=== PATIENT | male | born 2000 | race Caucasian/White ===

== ENCOUNTER 2020-03-19 12:16 | Emergency (ER) | payer BC ==
[~2020-03-19] VITALS: Ht 193 cm; Wt 80.3 kg
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
[2020-03-19] MEDS ORDERED: BACITRACIN ZINC 0.9GM TP ONE (13:21)
[2020-03-19 13:26] VITALS: BP 127/82
== END 2020-03-19 13:32 | disposition home or self-care (01) ==
LOC: FSED 12:16
DX: S61.011A Laceration without foreign body of right thumb without damage to nail, initial encounter (principal); S61.214A Laceration without foreign body of right ring finger without damage to nail, initial encounter; X78.0XXA Intentional self-harm by sharp glass, initial encounter; Y92.008 Other place in unspecified non-institutional (private) residence as the place of occurrence of the external cause
CPT/HCPCS: 99283